=== PATIENT | female | born 1995 | race Caucasian/White ===

== ENCOUNTER 2017-09-28 15:58 | Emergency (ER) | payer BC ==
[2017-09-28] MEDS ORDERED: HYDROmorphone 0.5 MG/0.5 ML Syringe IVPUSH ONE ×2 (16:39→17:50)
[2017-09-28] MEDS ORDERED: Sodium Chloride 0.9% 10 ML Syringe FLUSH PRN (16:40)
[2017-09-28] MEDS ORDERED: Ondansetron 4 MG/2 ML SDV IVPUSH ONE (16:46)
--- NOTE | 2017-09-28 16:51 | EDM.PDOC ---
ED HPI GENERAL MEDICAL PROBLEM - General Chief Complaint: Lower Extremity Injury/Pain Stated Complaint: R LEG INJURY Time Seen by Provider: 09/28/17 16:30 Source of Information: Reports: Patient History Limitations: Reports: No Limitations - History of Present Illness INITIAL COMMENTS - FREE TEXT/NARRATIVE: 22-year-old presents for evaluation and treatment of injury to the right ankle. Patient reports that she slipped on the ice. She'll and ankle. Reports hearing a popping sound. This occurred about one hour prior to arrival in the ER. Reports pain to the ankle. She has also noticed swelling and bruising. Unable to bear weight. No head trauma. Last intake was around noon. Primary care provider is nabeel Baltazar. Right Ankle Pain Score (Numeric/FACES): 5 - Related Data Allergies Allergy/AdvReac Type Severity Reaction Status Date / Time Latex, Natural Rubber Allergy Rash Verified 09/28/17 16:07 Home Meds: Home Meds Acetaminophen/oxyCODONE [Percocet 325-5 MG] 1 tab PO Q4HR PRN #20 tab 09/28/17 [ Rx] Past Medical History - Past Health History Medical/Surgical History: Denies Medical/Surgical History Psychiatric History: Reports: Anxiety, Depression - Past Surgical History HEENT Surgical History: Reports: Myringotomy w Tube(s), Oral Surgery Social & Family History - Family History Family Medical History: Noncontributory - Tobacco Use Smoking Status *Q: Current Some Day Smoker Years of Tobacco use: 9 Packs/Tins Daily: 0 - Recreational Drug Use Recreational Drug Use: Yes Drug Use in Last 12 Months: Yes Recreational Drug Type: Reports: Marijuana/Hashish Recreational Drug Use Frequency: Socially Review of Systems - Review of Systems Review Of Systems: See Below Constitutional: Denies: Chills, Fever Respiratory: Denies: Shortness of Breath, Cough Cardiovascular: Denies: Chest Pain GI/Abdominal: Denies: Abdominal Pain, Nausea, Vomiting Musculoskeletal: Reports: Joint Pain (rigth ankle), Joint Swelling (right ankle) . Denies: Neck Pain Skin: Reports: Bruising (right ankle) Neurological: Reports: Numbness (right foot), Tingling (right foot). Denies: Headache, Syncope ED EXAM, GENERAL - Physical Exam Exam: See Below Exam Limited By: No Limitations General Appearance: Alert, WD/WN, Mild Distress Eye Exam: Bilateral Eye: Normal Inspection Ears: Normal External Exam Nose: Normal Inspection Throat/Mouth: Normal Inspection, Normal Lips, Normal Oropharynx, Normal Voice, No Airway Compromise Neck: Normal Inspection Respiratory/Chest: No Respiratory Distress, Lungs Clear, Normal Breath Sounds Cardiovascular: Normal Peripheral Pulses, Regular Rate, Rhythm, No Murmur Peripheral Pulses: 2+: Posterior Tibial (R), Dorsalis Pedis (R) GI/Abdominal: Soft, Non-Tender Extremities: Normal Capillary Refill, Joint Swelling (right ankle), Limited Range of Motion (right ankle), Other (deformity to the right ankle) Neurological: Alert, Oriented, Normal Cognition Psychiatric: Normal Affect, Normal Mood Skin Exam: Warm, Dry, Normal Color ED TRAUMA EXTREMITY PROCEDURES - Splinting Right Lower Extremity Splint Site: right lower leg Pre-Procedure NV Status: Normal Post-Procedure NV Status: Normal Splint Material: Other (orthoglass) Splint Design: Stirrup, Posterior Applied & Form Fitted By: Provider, Tech Provider Post-Splint Application NV Check: NV Status Normal, Good Position Complications: No Course - Vital Signs Last Recorded V/S: Last Vital Signs Temp 37.1 C 09/28/17 16:04 Pulse 94 09/28/17 16:04 Resp 20 09/28/17 16:04 BP 138/92 H 09/28/17 16:04 Pulse Ox 100 09/28/17 16:04 - Orders/Labs/Meds Orders: Active Orders 24 hr Category Date Time Status Peripheral IV Care [RC] . DIRECTED Care 09/28/17 16:40 Active Ankle Min 3V Rt [CR] Stat Exams 09/28/17 16:15 Taken Peripheral IV Insertion Adult [OM.PC] Routine Oth 09/28/17 16:39 Ordered Labs: Laboratory Tests 09/28/17 09/28/17 09/28/17 Range/Units 17:00 17:00 17:00 WBC 6.59 (3.98-10.04) K/mm3 RBC 5.18 (3.98-5.22) M/mm3 Hgb 15.8 H (11.2-15.7) gm/L Hct 46.5 H (34.1-44.9) % MCV 89.8 (79.4-94.8) fl MCH 30.5 (25.6-32.2) pg MCHC 34.0 (32.2-35.5) g/dl RDW Std Deviation 44.8 (36.4-46.3) fL Plt Count 238 (182-369) K/mm3 MPV 10.3 (9.4-12.3) fl Neut % (Auto) 61.9 (34.0-71.1) % Lymph % (Auto) 29.1 (19.3-51.7) % Rankin % (Auto) 7.6 (4.7-12.5) % Eos % (Auto) 0.9 (0.7-5.8) Baso % (Auto) 0.3 (0.1-1.2) % Neut # (Auto) 4.08 (1.56-6.13) K/mm3 Lymph # (Auto) 1.92 (1.18-3.74) K/mm3 Rankin # (Auto) 0.50 H (0.24-0.36) K/mm3 Eos # (Auto) 0.06 (0.04-0.36) K/mm3 Baso # (Auto) 0.02 (0.01-0.08) K/mm3 PT 10.0 (8.0-13.0) SECONDS INR 0.92 APTT 24 (22-36) SECONDS Sodium 139 (136-145) mEq/L Potassium 3.8 (3.5-5.1) mEq/L Chloride 104 (98-107) mEq/L Carbon Dioxide 24 (21-32) mEq/L Anion Gap 14.8 (5-15) BUN 11 (7-18) mg/dL Creatinine 0.8 (0.55-1.02) mg/dL Est Cr Clr Drug Dosing 98.41 mL/min Estimated GFR (MDRD) > 60 (>60) mL/min BUN/Creatinine Ratio 13.8 L (14-18) Glucose 125 H (74-106) mg/dL Calcium 8.8 (8.5-10.1) mg/dL Total Bilirubin 0.3 (0.2-1.0) mg/dL AST 15 (15-37) U/L ALT 30 (14-59) U/L Alkaline Phosphatase 65 (46-116) U/L Total Protein 7.9 (6.4-8.2) g/dl Albumin 3.7 (3.4-5.0) g/dl Globulin 4.2 gm/dL Albumin/Globulin Ratio 0.9 L (1-2) HCG, Qual (NEGATIVE) 09/28/17 Range/Units 17:00 WBC (3.98-10.04) K/mm3 RBC (3.98-5.22) M/mm3 Hgb (11.2-15.7) gm/L Hct (34.1-44.9) % MCV (79.4-94.8) fl MCH (25.6-32.2) pg MCHC (32.2-35.5) g/dl RDW Std Deviation (36.4-46.3) fL Plt Count (182-369) K/mm3 MPV (9.4-12.3) fl Neut % (Auto) (34.0-71.1) % Lymph % (Auto) (19.3-51.7) % Rankin % (Auto) (4.7-12.5) % Eos % (Auto) (0.7-5.8) Baso % (Auto) (0.1-1.2) % Neut # (Auto) (1.56-6.13) K/mm3 Lymph # (Auto) (1.18-3.74) K/mm3 Rankin # (Auto) (0.24-0.36) K/mm3 Eos # (Auto) (0.04-0.36) K/mm3 Baso # (Auto) (0.01-0.08) K/mm3 PT (8.0-13.0) SECONDS INR APTT (22-36) SECONDS Sodium (136-145) mEq/L Potassium (3.5-5.1) mEq/L Chloride (98-107) mEq/L Carbon Dioxide (21-32) mEq/L Anion Gap (5-15) BUN (7-18) mg/dL Creatinine (0.55-1.02) mg/dL Est Cr Clr Drug Dosing mL/min Estimated GFR (MDRD) (>60) mL/min BUN/Creatinine Ratio (14-18) Glucose (74-106) mg/dL Calcium (8.5-10.1) mg/dL Total Bilirubin (0.2-1.0) mg/dL AST (15-37) U/L ALT (14-59) U/L Alkaline Phosphatase (46-116) U/L Total Protein (6.4-8.2) g/dl Albumin (3.4-5.0) g/dl Globulin gm/dL Albumin/Globulin Ratio (1-2) HCG, Qual Negative (NEGATIVE) Meds: Medications Discontinued Medications Generic Name Dose Route Start Last Admin Trade Name Freq PRN Reason Stop Dose Admin Hydromorphone HCl 0.5 mg 09/28/17 16:39 09/28/17 16:56 Dilaudid IVPUSH 09/28/17 16:40 0.5 mg ONETIME ONE Administration Hydromorphone HCl 0.5 mg 09/28/17 17:50 09/28/17 17:54 Dilaudid IVPUSH 09/28/17 17:51 0.5 mg ONETIME ONE Administration Ondansetron HCl 4 mg 09/28/17 16:46 09/28/17 16:55 Zofran IVPUSH 09/28/17 16:47 4 mg ONETIME ONE Administration Sodium Chloride 10 ml 09/28/17 16:40 09/28/17 16:56 Saline Flush FLUSH 10 ml ASDIRECTED PRN Administration Keep Vein Open - Radiology Interpretation Free Text/Narrative:: X-ray of the right ankle shows an unstable ankle fracture. Bimalleolar involving the medial and lateral malleolus. - Re-Assessments/Exams Free Text/Narrative Re-Assessment/Exam: 09/28/17 17:[address] Sampson, orthopedics director executive communications. Plan will be to obtain labs in preparation for operation tomorrow. She will have her come in at 9:30 in the morning. She is to be nothing by mouth after midnight. Ice and elevation. Will give her something for pain. Patient is agreeable to this plan. She states that she has had surgeries in the past including wisdom teeth removal and PE tubes placed. She has been under anesthesia without any problems. Patient reports she is healthy. She is on 2 forms of control and medications for anxiety and depression. Reports history of dermatographism. Denies any chronic medical conditions such as asthma or diabetes. 09/28/17 18:35 Splint placed. Patient tolerated this well. Discharge instructions as documented. Departure - Departure Time of Disposition: 18:35 Disposition: Home, Self-Care 01 Condition: Fair Clinical Impression: Ankle fracture, bimalleolar, closed Qualifiers: Encounter type: initial encounter Laterality: right Qualified Code(s): S82.841A - Displaced bimalleolar fracture of right lower leg, initial encounter for closed fracture - Discharge Information Prescriptions: Acetaminophen/oxyCODONE [Percocet 325-5 MG] 1 tab PO Q4HR PRN #20 tab PRN Reason: Pain Instructions: Ankle Fracture Referrals: PCP,Unknown [Primary Care Provider] - Lonnie Piper MD [Physician] - Forms: ED Department Discharge Additional Instructions: You were given medication in the ER that can affect your ability to drive and operate machinery. Do not drive or operate machinery within 12 hours of taking perception narcotic pain medication. Elevate the leg as much as possible. Above the level of the heart if able to. Ice the ankle, even over the splint. Percocet 1-2 tabs every 4-6 hours as needed for severe pain. Do not drive or operate machinery within 12 hours of taking Percocet. Percocet can be habit- forming, recommend you take as few of these as needed to control your pain. Be here at the hospital 9:30 tomorrow morning. Come to the ER and they will direct you were to go. You will be seen by Dr. Sampson. Call [phone] if you have any questions. You are not to have anything to eat or drink after midnight tonight. Splint on at all times. Keep covered when around water with a bag or Saran wrap. Use crutches at all times. Please return to the ER if your symptoms change or worsen. - My Orders Last 24 Hours: My Active Orders 09/28/17 16:39 Peripheral IV Insertion Adult [OM.PC] Routine 09/28/17 16:40 Peripheral IV Care [RC] . DIRECTED - Assessment/Plan Last 24 Hours: My Active Orders 09/28/17 16:39 Peripheral IV Insertion Adult [OM.PC] Routine 09/28/17 16:40 Peripheral IV Care [RC] . DIRECTED
--- NOTE | 2017-09-29 11:00 | CR ---
Right ankle: Four views of the right ankle were obtained. Comparison: No prior ankle study. Fractures are identified within the lateral and medial malleolus with mild displacement causing unstable ankle mortise. Small posterior malleolus fracture is also noted. Soft tissue swelling is identified. No additional abnormality is appreciated. Impression: 1. Trimalleolar fracture with unstable ankle mortise. 2. Soft tissue swelling. Diagnostic code #3
== END 2017-09-28 18:55 | disposition home or self-care (01) ==
LOC: JD.ED 15:58
DX: S82.841A Displaced bimalleolar fracture of right lower leg, initial encounter for closed fracture (principal); F17.210 Nicotine dependence, cigarettes, uncomplicated; Z91.040 Latex allergy status; W00.0XXA Fall on same level due to ice and snow, initial encounter
CPT/HCPCS: 29515; 36415; 73610; 80053; 84703; 85025; 85610; 85730; 96374; 96375; 96376; 99284; J1170; J2405; J7050

== ENCOUNTER 2017-09-29 09:23 | Day surgery (SDC) | payer BC ==
[2017-09-29] MEDS ORDERED: Midazolam 1 MG/ML 2 ML SDV ONE (10:04)
[2017-09-29] MEDS ORDERED: Propofol 200 MG/20 ML SDV ONE (10:04)
[2017-09-29] MEDS ORDERED: Ketamine 500 mg/10 ML MDV ONE (10:04)
[2017-09-29] MEDS ORDERED: fentaNYL 250 MCG/5 ML SDV ONE (10:04)
[2017-09-29] MEDS ORDERED: Dexamethasone 4 MG/ML SDV ONE (10:07)
[2017-09-29] MEDS ORDERED: Lidocaine 1% 4 ML ONE (10:07)
[2017-09-29] MEDS ORDERED: Ondansetron 4 MG/2 ML SDV ONE (10:07)
[2017-09-29] MEDS ORDERED: Rocuronium 50 MG/5 ML Vial ONE (10:07)
[2017-09-29] MEDS ORDERED: Neostigmine Methylsulfate 1 MG/ML 5 ML Syringe ONE (10:35)
[2017-09-29] MEDS ORDERED: Bupivacaine 0.5% 30 ML SDV ONE (10:51)
[2017-09-29] MEDS ORDERED: Ketorolac 30 MG/ML SDV IVPUSH PRN (11:03)
[2017-09-29] MEDS ORDERED: Acetaminophen/oxyCODONE 325-5 MG Tab PO PRN (11:03)
[2017-09-29] MEDS ORDERED: Ondansetron 4 MG/2 ML SDV IVPUSH PRN ×2 (11:03→13:56)
[2017-09-29] MEDS ORDERED: Cyclobenzaprine 10 MG Tab PO PRN (11:03)
--- NOTE | 2017-09-29 11:13 | PCM.PREANE ---
Preanesthetic Assessment - Procedure Proposed Procedure: ORIF right ankle fracture - Anesthesia/Transfusion/Family Hx Anesthesia History: Prior Anesthesia Without Reaction Family History of Anesthesia Reaction: No Transfusion History: No Prior Transfusion(s) Intubation History: Unknown - Review of Systems General: No Symptoms Pulmonary: No Symptoms Cardiovascular: No Symptoms Gastrointestinal: No Symptoms Neurological: No Symptoms Other: Reports: Depression, Anxiety - Physical Assessment NPO Status Date: 09/29/17 NPO Status Time: 00:00 O2 Sat by Pulse Oximetry: 100 Respiratory Rate: 16 Vital Signs: Last Vital Signs Temp 37.3 C 09/29/17 09:35 Pulse 82 09/29/17 09:35 Resp 16 09/29/17 09:35 BP 132/84 09/29/17 09:35 Pulse Ox 100 09/29/17 09:35 Height: 1.65 m Weight: 77.111 kg ASA Class: 1E Mental Status: Alert & Oriented x3 Airway Class: Mallampati = 1 Dentition: Reports: Normal Dentition Thyro-Mental Finger Breadths: 3 Mouth Opening Finger Breadths: 3 ROM/Head Extension: Full Lungs: Clear to Auscultation, Normal Respiratory Effort Cardiovascular: Regular Rate, Regular Rhythm - Allergies Allergies/Adverse Reactions: Allergies Allergy/AdvReac Type Severity Reaction Status Date / Time Latex, Natural Rubber Allergy Rash Verified 09/29/17 11:04 - Blood Blood Available: No Product(s) Available: None - Anesthesia Plan Pre-Op Medication Ordered: None - Acknowledgements Anesthesia Type Planned: General Anesthesia Pt an Appropriate Candidate for the Planned Anesthesia: Yes Alternatives and Risks of Anesthesia Discussed w Pt/Guardian: Yes Pt/Guardian Understands and Agrees with Anesthesia Plan: Yes PreAnesthesia Questionnaire - Past Health History Medical/Surgical History: Denies Medical/Surgical History Psychiatric History: Reports: Anxiety, Depression - Past Surgical History HEENT Surgical History: Reports: Myringotomy w Tube(s), Oral Surgery - SUBSTANCE USE Smoking Status *Q: Current Some Day Smoker (1x/ week) Tobacco Use Within Last Twelve Months: Cigarettes Second Hand Smoke Exposure: No Recreational Drug Use History: Yes Recreational Drug Type: Reports: Marijuana/Hashish (1x/ month on average) - HOME MEDS Home Medications: Home Meds Acetaminophen/oxyCODONE [Percocet 325-5 MG] 1 tab PO Q4HR PRN #20 tab 09/28/17 [ Rx] - CURRENT (IN HOUSE) MEDS Current Meds: Current Medications Cyclobenzaprine HCl (Flexeril) 10 - 20 mg PO Q8H PRN PRN Reason: Muscle Spasm Ketorolac Tromethamine (Toradol) 30 mg IVPUSH Q6H PRN PRN Reason: Pain (severe 7-10) Morphine Sulfate (Ms Contin) 15 mg PO ONETIME DEMETRIO Ondansetron HCl (Zofran) 4 mg IVPUSH Q4H PRN PRN Reason: Nausea/Vomiting Oxycodone/Acetaminophen (Percocet 325-5 Mg) 1 - 2 tab PO Q4H PRN PRN Reason: Pain (severe 7-10) Discontinued Medications Bupivacaine HCl (Marcaine 0.5%) Confirm Administered Dose 30 ml .ROUTE .STK-MED ONE Stop: 09/29/17 10:52 Dexamethasone (Dexamethasone) Confirm Administered Dose 4 mg .ROUTE .STAmigoCAT-MED ONE Stop: 09/29/17 10:08 Fentanyl (Sublimaze) Confirm Administered Dose 250 mcg .ROUTE .STK-MED ONE Stop: 09/29/17 10:05 Glycopyrrolate () Confirm Administered Dose 1 mg .ROUTE .STK-MED ONE Stop: 09/29/17 10:36 Lidocaine HCl (Xylocaine-Mpf 1%) Confirm Administered Dose 4 mls @ as directed .ROUTE .STK-MED ONE Stop: 09/29/17 10:08 Iodine (Iodine 2% Mild Tincture) Confirm Administered Dose 30 ml .ROUTE .STK- MED ONE Stop: 09/29/17 10:52 Ketamine HCl (Ketalar) Confirm Administered Dose 500 mg .ROUTE .STK-MED ONE Stop: 09/29/17 10:05 Midazolam HCl (Versed 1 Mg/Ml) Confirm Administered Dose 2 mg .ROUTE .STK-MED ONE Stop: 09/29/17 10:05 Neostigmine Methylsulfate (Neostigmine) Confirm Administered Dose 5 mg .ROUTE .STK-MED ONE Stop: 09/29/17 10:36 Ondansetron HCl (Zofran) Confirm Administered Dose 4 mg .ROUTE .STK-MED ONE Stop: 09/29/17 10:08 Propofol (Diprivan 20 Ml) Confirm Administered Dose 200 mg .ROUTE .STK-MED ONE Stop: 09/29/17 10:05 Rocuronium [place] (Zemuron) Confirm Administered Dose 50 mg .ROUTE .[facility] ONE Stop: 09/29/17 10:08
[2017-09-29] MEDS ORDERED: Morphine 15 MG Tab.ER PO SCH (11:15)
[2017-09-29] MEDS ORDERED: ceFAZolin 1 GM Vial ONE (11:32)
--- NOTE | 2017-09-29 11:35 | HP ---
DATE OF ADMISSION: 09/29/2017 HISTORY OF PRESENT ILLNESS: This is the first orthopedic outpatient admission for surgery for this 22-year- old female who has been admitted with a bimalleolar fracture of the right ankle. The patient was evaluated through the emergency room. X-ray showed a displaced fracture, unstable ankle fracture, and she is now being scheduled for the surgical correction procedure. The patient noted no other injuries after her fall. The patient notes that she has significant pain in and around the ankle area, but currently is in a short-leg splint that was applied in the emergency room. ALLERGIES: Latex and synthetic rubber. No drug allergy noted. CURRENT MEDICATIONS: Include lorazepam. PAST MEDICAL HISTORY: The current medical problem has been depression. PAST SURGICAL HISTORY: Positive for previous wisdom teeth extraction and ear tubal surgery, both requiring anesthesia. She had no complications from anesthesia. PHYSICAL EXAMINATION: GENERAL: Examination today reveals a well-developed, well-nourished, 22-year- old female in moderate to severe distress. HEAD, EYES, EARS, NOSE, AND THROAT: Normocephalic. NECK: Supple. CHEST: Clear. CARDIOVASCULAR: Regular rate. ABDOMEN: Soft. GENITOURINARY: Intact. EXTREMITIES: Examination of the right lower extremity reveals severe pain on direct pressure and palpation over both medial and lateral malleolus. Slight swelling noted, and hematoma and ecchymosis formation. The patient's skin is intact. The patient has good circulation to her toes. RADIOGRAPHIC STUDIES: X-rays were reviewed which showed displaced fractures of the lateral and medial malleolus of the right ankle. PLAN: Plan is for the patient to undergo a surgical open reduction and internal fixation of the ankle fractures. The procedures were outlined to her. The postop recovery phase and medications for pain control noted. She understands that and has consented to surgery. MMODAL /[id number]
--- NOTE | 2017-09-29 11:52 | CONS ---
CONSULTING PHYSICIAN: Lonnie Piper MD DATE OF CONSULTATION: 09/29/2017 HISTORY: This is an orthopedic consultation/evaluation for an injury to the right ankle secondary to a fall. The patient suffered the injury on 09/28/2017, was seen in emergency room, evaluated. X-rays were taken, found to have a displaced fractures of the right ankle, placed in a short-leg splint. The patient is being evaluated for outpatient surgical repair of the fracture, right ankle. The patient notes no other injury after the fall. She has been stable. She does have severe pain in and around the ankle area. ALLERGIES: To latex and synthetic rubber type substances. PAST MEDICAL HISTORY: She had depression in the past. PAST SURGICAL HISTORY: Has been positive with no anesthesia problems or complications. PHYSICAL EXAMINATION: The right ankle reveals severe pain on direct pressure and palpation on both the medial and lateral side of the ankle. Skin is intact. Circulation is intact to the toes. DIAGNOSTIC DATA: The x-rays were reviewed and showed a bimalleolar fracture of the right ankle with a displaced lateral malleolus and medial malleolus. IMPRESSION: Unstable bimalleolar fracture of the right ankle. PLAN: The patient is to be scheduled for outpatient surgery for an open reduction and internal fixation of the right ankle fracture. Procedure has been outlined to her and she understands that and has consented to it. PEÑA /[id number]
[2017-09-29] MEDS ORDERED: HYDROmorphone 1 MG/ML Syringe ONE (12:04)
[2017-09-29] MEDS ORDERED: Lactated Ringers 1,000 ML ONE (12:27)
[2017-09-29] MEDS: Iodine/Sodium Iodide 2% Tincture 30 ML Bottle ONE ×2 (12:45→12:46)
[2017-09-29] MEDS ORDERED: fentaNYL 100 MCG/2 ML SDV ONE (13:40)
--- NOTE | 2017-09-29 13:52 | PCM.POSTAN ---
POST ANESTHESIA ASSESSMENT - MENTAL STATUS Mental Status: Alert, Oriented - VITAL SIGNS Pulse Rate: 104 SaO2: 96 Resp Rate: 11 Blood Pressure: 156/97 Temperature: 37.6 C - RESPIRATORY Respiratory Status: Respiratory Rate WNL, Airway Patent, O2 Saturation Stable, Supplemental Oxygen - CARDIOVASCULAR CV Status: Pulse Rate WNL, Blood Pressure Stable - GASTROINTESTINAL GI Status: No Symptoms - PAIN Pain Score: 0 - POST OP HYDRATION Hydration Status: Adequate & Stable
[2017-09-29] MEDS ORDERED: diphenhydrAMINE 50 MG/ML SDV IVPUSH PRN (13:56)
[2017-09-29] MEDS ORDERED: Meperidine PF 50 MG/ML Syringe IVPUSH PRN (13:56)
[2017-09-29] MEDS: fentaNYL 100 MCG/2 ML SDV IVPUSH PRN ×2 (13:58→14:16)
[2017-09-29] MEDS ORDERED: Ketorolac 30 MG/ML SDV ONE (14:03)
[2017-09-29] MEDS: HYDROmorphone 0.5 MG/0.5 ML Syringe IVPUSH PRN ×2 (14:04→14:22)
--- NOTE | 2017-09-29 17:49 | PCM48HPAN ---
Post Anesthesia Note - EVALUATION WITHIN 48HRS OF ANESTHETIC Vital Signs in Normal Range: Yes Patient Participated in Evaluation: Yes Respiratory Function Stable: Yes Airway Patent: Yes Cardiovascular Function Stable: Yes Hydration Status Stable: Yes Pain Control Satisfactory: Yes Nausea and Vomiting Control Satisfactory: Yes Mental Status Recovered: Yes
--- NOTE | 2017-09-30 08:58 | CR ---
Ankle: Four fluoroscopic spot views were obtained of the ankle utilizing C-arm device. Request states left ankle Comparison: Previous ankle exam labeled as right side dated 09/2017. Side discrepancy is noted between fluoroscopic study and previous radiograph. Please correlate as to side. Bimalleolar fractures show evidence of reduction. Short intramedullary yoel affixes the lateral malleolus fracture with 2 cannulated screws affixing the medial malleolus fracture. Skin bailey are present. Final film shows symmetric ankle mortise. Impression: 1. Side discrepancy between current exam and previous. Please correlate as to which ankle was fractured. 2. Reduction and fixation as described above. Diagnostic code #2
--- NOTE | 2017-10-01 08:22 | OR ---
DATE OF OPERATION: 09/29/2017 SURGEON: Lonnie Piper MD PREOPERATIVE DIAGNOSIS: Displaced bimalleolar fracture, right ankle, unstable. POSTOPERATIVE DIAGNOSIS: Displaced bimalleolar fracture, right ankle, unstable. ANESTHESIA: General. OPERATION PERFORMED: 1. Open reduction and internal fixation, right fibula with Millan yoel. 2. Open reduction, internal fixation medial malleolus with 2 cannulated screws, right ankle. 3. Application of short-leg cast, bivalved. DESCRIPTION OF PROCEDURE: The patient was taken to the operative room in supine position, placed under general anesthesia. The right leg was then prepped and draped by standard fashion for operation to the ankle area. After prepping and draping, the operation proceeded with the stabilization of the lateral side with a lateral incision being placed centered over the fibula with a hockey stick curved anteriorly. Penetrating through the skin and subcutaneous tissues and this was sharp, dissection was carried right down to the fibula and fracture site. This was an oblique fracture from anterior to posterior angle. The area of the fracture was then debrided. Fracture hematoma was removed from the fracture itself and then the fracture was reduced and held in place with a bone clamp. The operation then proceeded with a small Millan yoel being used and this was inserted in a retrograde fashion across the distal fragment and into the proximal fragment, stabilizing the fracture to further increase stabilization because of the long oblique nature. Two #1 Vicryl were used in a cerclage fashion around the fibula to secure it to the Millan yoel. Once those were in place, the compression was released, the fracture held very nicely. The ankle was flexed and extended. No movement was noted. The fluoroscopy was brought in to evaluate the fracture and position of Millan yoel, it was found to be centered in the fibula and the operation then proceeded to thorough irrigation of the wound area. Deep tissues were closed with #1 Vicryl, subcutaneous tissue with 2-0 Vicryl and skin with skin bailey. The operation then proceeded to the medial side where a curved incision was placed over the medial malleolus with penetration made through the skin and subcutaneous tissues. These were dissected around the saphenous vein to expose the fracture which was oblique extending up proximally. There was one bone fragment that was removed, that was loose in the joint area and the operation proceeded with opening of the fracture site. Thorough irrigation was used; I entered the joint and inspection. There was scuffing of the talus that could be seen and then the operation proceeded with final irrigation of the fracture site. This was reduced, held in place and then the 2 percutaneous 3.5 cannulated screws were then inserted in a retrograde fashion securing the fracture distal to proximal. The fracture line was reduced almost anatomic. The operation then proceeded with irrigation of wound area. The deep tissues were closed #1 Vicryl, subcu tissues with 2-0 Vicryl and skin with skin bailey. The operation proceeded with standard dressings and a short- leg bivalve cast was applied. The patient tolerated this procedure well. She left the operating room in stable condition to room for recovery. ESTIMATED BLOOD LOSS: MMODAL /[id number]
== END 2017-09-29 15:42 | disposition home or self-care (01) ==
LOC: JD.ED 09:23 → JD.SDS 09:43
PROVIDERS: ATTEND Specialist
DX: S82.841A Displaced bimalleolar fracture of right lower leg, initial encounter for closed fracture (principal); F32.9 Major depressive disorder, single episode, unspecified; F41.9 Anxiety disorder, unspecified; F17.210 Nicotine dependence, cigarettes, uncomplicated; W19.XXXA Unspecified fall, initial encounter; Z91.040 Latex allergy status
CPT/HCPCS: 27766; 76000; 99281; A9270; J0690; J1100; J1170; J1885; J2250; J2405; J2710; J3010; J7120; 01480; C1713; C1769; J2001; J2704

== ENCOUNTER 2021-01-24 15:39 | Emergency (ER) | payer BC ==
[2021-01-24] MEDS ORDERED: Ketorolac 60 MG/2 ML SDV IM ONE (16:13)
[2021-01-24] MEDS ORDERED: HYDROmorphone 1 MG/ML Syringe IM ONE (16:13)
[2021-01-24] MEDS ORDERED: Cyclobenzaprine 10 MG Tab PO ONE (16:13)
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
== END 2021-01-24 16:38 | disposition home or self-care (01) ==
LOC: JD.ED 15:39
DX: M54.12 Radiculopathy, cervical region (principal); E66.9 Obesity, unspecified; Z91.040 Latex allergy status; Z68.32 Body mass index [BMI] 32.0-32.9, adult
CPT/HCPCS: 96372; 99283; A9270; J1170; J1885; 99284